=== PATIENT | female | born 1960 | race Two or more races ===

== ENCOUNTER 2021-07-30 18:43 | Emergency (ER) | payer OTHER ==
[~2021-07-30] VITALS: Ht 154.9 cm; Wt 56.7 kg
[2021-07-30 19:01] VITALS: BP 135/84
--- NOTE | 2021-07-30 19:10 | NUR ---
TO ER BED 13. [id number] FRM HOME C/O BLE PAIN, SWELLING AND REDNESS X 4 MONTHS. PT CHANGED INTO GOWN. CONNECTED TO MONITOR. AWAITING MD TOMLIN
--- NOTE | 2021-07-30 20:06 | NUR ---
Patient does not wish to proceed with medical care recommended by ENRIQUE Garcia. Patient given information related to possible complications, up to and including , which could occur as a result of leaving the hospital at this time. Patient verbalizes understanding of risks involved due to leaving against medical advice. Patient has signed AMA form.
== END 2021-07-30 20:07 | disposition left against medical advice (07) ==
LOC: ER 19:27
DX: R21 Rash and other nonspecific skin eruption (principal); F41.9 Anxiety disorder, unspecified; F32.A Depression, unspecified